=== PATIENT | female | born 1965 | race Caucasian/White ===

== ENCOUNTER 2021-10-24 02:18 | Emergency (ER) | payer OTHER, SELFPAY ==
[2021-10-24 02:24] VITALS: BP 119/74; PULSE 77; RESP 16; TEMP 36.7; O2SAT 97
--- NOTE | 2021-10-24 02:30 | DI.RAD_ITS ---
Exam(s) XR KNEE RT 3V AP,LAT,LOLY EXAM: XR KNEE RT 3V AP,LAT,LOLY CLINICAL HISTORY: fall 3 days ago pain. TECHNIQUE: 2D digital imaging was performed. COMPARISON: No exams were available for comparison FINDINGS: 3 views No evidence of acute fracture. There is small amount of increased joint fluid in the knee joint. Th e distal aspect of the long intramedullary femur mirella is noted which is secured by 2 screws at the lev el of the distal femoral metaphysis. There are moderate degenerative changes in all 3 compartments of the knee. No osseous lesions. Oste openia but no fractures. IMPRESSION: DATA REPOSITORY: RADIATION DOSE DELIVERED:
--- NOTE | 2021-10-24 02:47 | ED.GENADUL_ITS ---
Discharge Plan Disposition Patient Disposition: HOME Condition: Stable Discharge Details Chief Complaint: Orthopedic Clinical Impression: Strain of right knee Primary Care Provider: Unknown,Unknown ED Provider: Raymond Davis Home Meds and New Rx's Prescriptions: No Action No Known Home Meds Discharge Instructions Instructions: Knee Pain (ED) Additional Instructions: if pain continues in a week follow up with your primary care provider if you feel more ill, have fevers or the knee becomes red and swollen return to the emergency department Medical Decision Making 56 yo female who denies chronic medical problems comes in with cc of right knee pain. She states she was at work 3 days ago and slipped on wet floor and landed on her lateral right knee, denies hitting head or loc. Has had pain primarily when she is on her feet for awhile in the right knee since so came here. Denies fevers, chills, rashes. She arrives stable, speaking in full sentences and clearly. She localizes the pain to the lateral right knee. She has full rom and intact distal sensation and pulses. No visible or palpable deformity of the knee. Has tenderness over lateral joint line of the knee. No warmth or erythema. Suspect strain vs contusion but will xray to further evaluate for possible fracture, history and physical not consistent with etiology such as septic joint. xray on my read shows no acute findings, had a prior femur fracture and has hardware, I do not see an acute fracture. Will place in hinged knee brace, advised to f/u with pcp if pain continued. Differential Diagnosis Differential Diagnosis: contusion, sprain, strain Imaging Data Radiologic Study: Attestation: I personally reviewed and interpreted this imaging study as follows: Imaging: X-Ray My impression: no acute findings HPI General Mode of arrival: ambulatory . Date/Time Provider Initiated Documentation: 10/24/21 02:20 . Limitations to Documentation: no limitations . History of Present Illness 56 year old F presents to the emergency department with the chief complaint of right knee pain, described as moderate, Quality is described as aching, Patient started experiencing this day(s) (3) and it has been constant. No relieving factors improve symptom(s), No exacerbating factors reported . Patient notes no other symptoms.. Patient did receive the following treatments prior to arrival, NSAID (10pm last night) Related Data Home Medications Medication Instructions Recorded Confirmed Unknown [No Known Home Meds] 10/24/21 10/24/21 Allergies Allergy/AdvReac Type Severity Reaction Status Date / Time aspirin Allergy Unverified 10/24/21 02:27 codeine Allergy Unverified 10/24/21 02:28 Sulfa (Sulfonamide Allergy Unverified 10/24/21 02:28 Antibiotics) bees Allergy Uncoded 10/24/21 02:28 General Stated Complaint: Orthopedic SHO: 4 Review of Systems All systems reviewed & are unremarkable except as noted in HPI and below Constitutional Constitutional: Denies chills, Denies fever(s) and Denies weakness Cardiovascular Cardiovascular: Denies chest pain and Denies dyspnea Respiratory Respiratory: Denies cough and Denies dyspnea Gastrointestinal Gastrointestinal: Denies abdominal pain, Denies nausea and Denies vomiting Musculoskeletal Musculoskeletal: Denies joint swelling Neurologic Neurologic: Denies weakness PFSH All Active Problems (Updated 10/24/21 @ 03:08 by Raymond Davis MD) Strain of right knee (Acute) Social History Smoking/Tobacco Use Status: Never Smoking risk assessment performed?: Yes Substance use type: does not use Exam Const General: no acute distress Orientation: alert HENMT Head: normal to inspection Ears: external ears normal General nose exam: external nose normal Mouth: moist mucous membranes Eyes General: appearance normal, both eyes and all related structures Neck Neck: normal visual inspection Resp Effort & Inspection: normal respiratory effort and able to speak in complete sentences Cardio Rate: regular rate Skin General skin exam: no rashes or lesions noted Neuro General: patient alert and patient oriented x3 Extrem General: normal to inspection, full ROM and capillary refill normal Psych Mental Status: mental status grossly normal Course Vital Signs Vital signs: Vital Signs Temperature 36.7 C 10/24/21 02:24 Pulse 77 10/24/21 02:24 Respiratory Rate 16 10/24/21 02:24 Blood Pressure 119/74 10/24/21 02:24 Pulse Oximetry 97 10/24/21 02:24 Temperature 36.7 C 10/24/21 02:24 Temperature Source Temporal Artery Scan 10/24/21 02:24 Pulse 77 10/24/21 02:24 Respiratory Rate 16 10/24/21 02:24 Respiratory Effort 10/24/21 02:24 Blood Pressure 119/74 10/24/21 02:24 Blood Pressure Position Sitting 10/24/21 02:24 Pulse Oximetry 97 10/24/21 02:24 Oxygen Delivery Method Room Air 10/24/21 02:24 Oxygen Flow Rate 0 10/24/21 02:24 Pain Level 8 10/24/21 02:29
[2021-10-24] MEDS: Ibuprofen 600 MG TAB PO (02:50)
--- NOTE | 2021-10-24 04:26 | DI.VRAD_ITS ---
PROCEDURE INFORMATION: Exam: XR Right Knee Exam date and time: 10/24/2021 2:48 AM Age: 56 years old Clinical indication: Other: Fall 3 days ago pain TECHNIQUE: Imaging protocol: Radiologic exam of the Right knee. Views: 3 views. COMPARISON: No relevant prior studies available. FINDINGS: Bones/joints: Partially visualized femoral intramedullary mirella with distal fixation screws noted which appears intact. No fracture identified. The medial joint space is mildly narrowed. The lateral joint space is well maintained. Tibial spine spurring noted. Posterior distal femoral enthesophyte noted. Soft tissues: No significant knee joint effusion is present. IMPRESSION: No evidence of acute fracture or dislocation. Dictated and Authenticated by: Casey Lerner MD. Ordering:ATUL Andrade MD
== END 2021-10-24 03:14 | disposition home or self-care (01) ==
PROVIDERS: Emergency Provider Emergency Medicine
DX: S83.91XA Sprain of unspecified site of right knee, initial encounter (principal); W01.0XXA Fall on same level from slipping, tripping and stumbling without subsequent striking against object, initial encounter
CPT/HCPCS: 73562; 99283; 99282

== ENCOUNTER 2021-11-01 20:41 | Emergency (ER) | payer OTHER, SELFPAY ==
[2021-11-01 20:53] VITALS: BP 116/62; PULSE 82; RESP 16; TEMP 36.4; O2SAT 99
--- NOTE | 2021-11-01 21:07 | ED.GENADUL_ITS ---
Discharge Plan Disposition Patient Disposition: HOME Condition: Good Discharge Details Clinical Impression: Epicondylitis, lateral Primary Care Provider: Unknown,Unknown ED Provider: Edwardo Elliott Home Meds and New Rx's Prescriptions: New diclofenac sodium [Voltaren Arthritis Pain] 1 % gel 2 g topical QID Qty: 100 0RF Rx Instructions: apply to single elbow, wrist or hand; for hand includes palm/fingers/back of hand prednisone 50 mg tablet 50 mg PO DAILY Qty: 5 0RF Discharge Instructions Instructions: Tennis Elbow (ED) Additional Instructions: At this time your symptoms are consistent with tennis elbow. This is causing compression of the nerves that go down towards your wrist. Please use the tennis elbow brace as directed. Please apply the Voltaren gel to your elbow every 4-6 hours. Please take 500 mg of Tylenol every 6 hours. Please ice your elbow frequently throughout the day. If you do not have improvement of your symptoms after 2 to 3 days of this therapy then please take the steroid as directed. Make sure to take Tums or Maalox to help prevent any GI irritation while on the steroid. If you notice any worsening of your symptoms, or any new symptoms such as vomiting, diarrhea, fever, chills, shortness of breath, chest pain, numbness, weakness, or fainting , please return immediately to the emergency department for reevaluation. Please follow up with your primary care provider as soon as possible for reassessment and reevaluation. As always, it was a pleasure participating in your medical care today. Medical Decision Making This is a pleasant 56-year-old female with a past medical history of to develop, who presents today for evaluation of left elbow pain in her left dominant arm. Patient states that for the past week she has had mild tenderness over the left lateral elbow, however yesterday she went and helped someone move a tremendous amount of boxes, after which she had significant worsening of the pain. It caused associated numbness and tingling traveling down the forearm into the second third fourth and fifth digits. Pain is made worse with movement and palpation of the lateral elbow. She denies any trauma whatsoever. She denies any fever or chills. No other complaints at this time. No other modifying factors. She has taken ibuprofen but this has not improved her symptoms. Physical exam demonstrates lateral epicondyle she is tingling in the fingers is slightly atypical, and appears more consistent with an ulnar neuropathy however sensation is still present. Perhaps there is some crossover for the patient. There is no medial epicondyle tenderness whatsoever. Will recommend topical NSAIDs, tennis elbow splint, and Tylenol. The patient does not have improvement of her symptoms over the next 2 to 3 days with this therapy then she may require steroids as well. No indication for imaging at this time as patient has not had any trauma, and symptoms are clinically consistent currently with epicondylitis. We will hold off on imaging for the time being. Patient agrees to this plan. Patient will be discharged home. Discussed red flags which to return. I have extensively reviewed the treatment plan and discharge instructions with the patient. I have addressed all patient concerns at this time. The patient was made aware of what symptoms to monitor for that would warrant a return to the emergency department. Discussed the plan with the patient, they demonstrate verbal understanding and agreement with our assessment and plan at this time. The documentation in this chart was dictated using [employer] dictation software. Please excuse any dictation errors. HPI General Date/Time Provider Initiated Documentation: 11/01/21 20:41 . HPI Narrative: This is a pleasant 56-year-old female with a past medical history of to develop, who presents today for evaluation of left elbow pain in her left dominant arm. Patient states that for the past week she has had mild tenderness over the left lateral elbow, however yesterday she went and helped someone move a tremendous amount of boxes, after which she had significant worsening of the pain. It caused associated numbness and tingling traveling down the forearm into the second third fourth and fifth digits. Pain is made worse with movement and palpation of the lateral elbow. She denies any trauma whatsoever. She denies any fever or chills. No other complaints at this time. No other modifying factors. She has taken ibuprofen but this has not improved her symptoms. Related Data Home Medications Medication Instructions Recorded Confirmed diclofenac sodium 1 % topical gel 2 g topical QID #100 grams 11/01/21 (Voltaren Arthritis Pain) prednisone 50 mg tablet 50 mg PO DAILY #5 tabs 11/01/21 Previous Rx's Medication Instructions Recorded diclofenac sodium 1 % topical gel 2 g topical QID #100 grams 11/01/21 (Voltaren Arthritis Pain) prednisone 50 mg tablet 50 mg PO DAILY #5 tabs 11/01/21 Allergies Allergy/AdvReac Type Severity Reaction Status Date / Time aspirin Allergy Unverified 11/01/21 20:57 codeine Allergy Unverified 11/01/21 20:57 Sulfa (Sulfonamide Allergy Unverified 11/01/21 20:57 Antibiotics) bees Allergy Uncoded 11/01/21 20:57 General Stated Complaint: Orthopedic SHO: 4 Review of Systems All systems reviewed & are unremarkable except as noted in HPI and below PFSH All Active Problems Strain of right knee (Acute) Epicondylitis, lateral (Acute) Social History Smoking/Tobacco Use Status: Never Smoking risk assessment performed?: Yes Substance use type: does not use Exam Narrative Exam Narrative: 1.Const: Well-nourished, Well-developed, appearing stated age 2.Eyes: PERRL, no conjunctival injection, and symmetrical lids. 3.ENT: Atraumatic external nose and ears. Moist MM. Neck: Symmetric, trachea midline, No thyromegaly. 4.CVS: +S1/S2, No murmurs or gallops. Peripheral pulses 2+ and equal in all extremities. Brisk capillary refill in all extremities. 5.RESP: Unlabored respiratory effort. Clear to auscultation bilaterally. No wheezes rales or rhonchi 6.GI: Soft, Nontender/Nondistended, No hepatosplenomegaly. No guarding or rebound. 7.MSK: Left elbow demonstrates minimal swelling and mild tenderness over the lateral epicondyle, pain is made worse with supination mainly, and minimally worse with pronation. Pain is present with flexion and some extension. Subjective tingling present over the third fourth and fifth fingers. Sensation present still though. No tenderness over the carpal tunnel. Negative Alex test. On direct pressure to the forearm isolating the lateral flexors the patient has diminished pain in the lateral epicondyle. Left hand demonstrates symmetrically palpable radial and ulnar pulses. Capillary refill less than 2 seconds to all digits. Intact motor function of the radial, median and ulnar nerves demonstrated by strength of extension of the isolated distal joint of the index finger, hand document review specialist, and spreading of the 2nd through 5th digits. Intact recurrent median nerve as demonstrated by ability to move thumb fully through opposition, abduction and flexion. No snuffbox tenderness. 8.Skin: Warm, Dry. No rashes or lesions. 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 Sensation grossly intact, no focal neurologic deficits. 10.Psych: (AAO) x3. Appropriate mood and affect Course Vital Signs Vital signs: Vital Signs Temperature 36.4 C L 11/01/21 20:53 Pulse 82 11/01/21 20:53 Respiratory Rate 16 11/01/21 20:53 Blood Pressure 116/62 11/01/21 20:53 Pulse Oximetry 99 11/01/21 20:53 Temperature 36.4 C L 11/01/21 20:53 Temperature Source Tympanic 11/01/21 20:53 Pulse 82 11/01/21 20:53 Respiratory Rate 16 11/01/21 20:53 Respiratory Effort 11/01/21 20:53 Blood Pressure 116/62 11/01/21 20:53 Blood Pressure Position Sitting 11/01/21 20:53 Pulse Oximetry 99 11/01/21 20:53 Oxygen Delivery Method Room Air 11/01/21 20:53 Oxygen Flow Rate 0 11/01/21 20:53 Pain Level 10 11/01/21 20:53
[2021-11-01] MEDS: HYDROcodone 5/Acetaminophen 325 TAB PO (21:30)
== END 2021-11-01 21:40 | disposition home or self-care (01) ==
PROVIDERS: Emergency Provider Student in an Organized Health Care Education/Training Program
DX: M77.12 Lateral epicondylitis, left elbow (principal)
CPT/HCPCS: 99283; 99284

== ENCOUNTER 2022-03-19 17:50 | Emergency (ER) | payer OTHER, SELFPAY ==
[2022-03-19 17:53] VITALS: BP 111/66; PULSE 95; RESP 18; TEMP 37; O2SAT 97
--- NOTE | 2022-03-19 18:18 | W.ED.GENAD ---
Discharge Plan Disposition Patient Disposition: Home Condition: Stable Discharge Details Clinical Impression: Otitis media Primary Care Provider: None,None ED Provider: Manuel Partida Home Meds and New Rx's Prescriptions: New amoxicillin 875 mg tablet 875 mg PO BID Qty: 20 0RF Discharge Instructions Instructions: Ear Infection (ED) Additional Instructions: Amoxicillin as directed. [id number] medications as directed for symptomatic control. Please watch for new or worsening symptoms and return to the ER for any concerns. Lastly, please contact your primary care provider on Tuesday to discuss your ER visit and potential need for outpatient reevaluation. Medical Decision Making 56-year-old female, is not a smoker, denies significant past medical history reports right ear pain over the past 24 hours worsening with associated discharge. Clinically she appears well, nontoxic. Examination reveals a erythematous and bulging right TM with no effusion or perforation. We will provide first dose of amoxicillin now. Standard discharge and return precautions were provided. Patient understands, is agreeable to this plan, and has no additional questions or concerns upon discharge. This documentation was generated using [employer] system, please disregard any oddities of phrase or misspellings. Medical Records Medical records reviewed: Yes I reviewed the patient's medical records. HPI General Mode of arrival: ambulatory. Date/Time Provider Initiated Documentation: 03/19/22 17:57. Limitations to Documentation: no limitations. Information obtained by: patient. History of Present Illness 56 year old F presents to the emergency department with the chief complaint of R ear pain, described as moderate, with intensity rated at 5. Quality is described as aching, and is localized to the head and right. Patient reports no radiation. Patient started experiencing this day(s) (1) and it has been constant. No relieving factors improve symptom(s), No exacerbating factors reported . Patient notes no other symptoms.. Patient did receive the following treatments prior to arrival, none Related Data Home Medications Medication Instructions Recorded Confirmed amoxicillin 875 mg tablet 875 mg PO BID #20 tabs 03/19/22 Previous Rx's Medication Instructions Recorded amoxicillin 875 mg tablet 875 mg PO BID #20 tabs 03/19/22 Allergies Allergy/AdvReac Type Severity Reaction Status Date / Time aspirin Allergy Unverified 03/19/22 17:58 codeine Allergy Unverified 03/19/22 17:58 Sulfa (Sulfonamide Allergy Unverified 03/19/22 17:58 Antibiotics) bees Allergy Uncoded 03/19/22 17:58 General Stated Complaint: EarProblem SHO: 4 Review of Systems Constitutional Constitutional: Denies fever(s) and Denies headache(s) ENT Ears, Nose, Mouth, and Throat: Reports otalgia, Denies headache(s), Denies neck pain and Denies sore throat Cardiovascular Cardiovascular: Denies chest pain and Denies dyspnea Respiratory Respiratory: Denies cough and Denies dyspnea Musculoskeletal Musculoskeletal: Denies neck pain Integumentary/Breasts Skin/Breast: Denies rash Neurologic Neurologic: Denies headache(s) PFSH All Active Problems (Updated 03/19/22 @ 18:24 by JOSEFINA Holguin) Otitis media (Acute) Social History Smoking/Tobacco Use Status: Never Smoking risk assessment performed?: Yes Drug use: Never Substance use type: does not use Do you feel safe at home: Yes Do you feel safe in your relationship?: Yes Exam Const General: cooperative, healthy appearing, comfortable and no acute distress Orientation: alert and awake HENMT Head: normal to inspection, normocephalic and atraumatic Ears: TM normal on the left, EAC's normal and TM abnormal bulging on the left and erythematous on the left General nose exam: external nose normal Face and sinus: normal facial exam Mouth: moist mucous membranes Throat: posterior oropharynx normal Eyes General: appearance normal, both eyes and all related structures Conjunctivae: conjunctivae normal Neck Neck: normal visual inspection, full ROM, no lymphadenopathy, no meningeal signs, trachea midline, supple and nontender Resp Effort & Inspection: normal respiratory effort and able to speak in complete sentences Auscultation: clear to auscultation bilaterally Cardio Rate: regular rate Rhythm: regular rhythm Skin General skin exam: no rashes or lesions noted Neuro General: patient alert, patient awake, moves all extremities and no focal motor deficits Sensory Exam: no sensory deficits noted Psych Appearance: grossly normal Mental Status: mental status grossly normal Course Vital Signs Vital signs: Vital Signs Temperature 37.0 C 03/19/22 17:53 Pulse 95 H 03/19/22 17:53 Respiratory Rate 18 03/19/22 17:53 Blood Pressure 111/66 03/19/22 17:53 Pulse Oximetry 97 03/19/22 17:53 Temperature 37.0 C 03/19/22 17:53 Temperature Source Oral 03/19/22 17:53 Pulse 95 H 03/19/22 17:53 Respiratory Rate 18 03/19/22 17:53 Respiratory Effort Non-Labored 03/19/22 17:57 Blood Pressure 111/66 03/19/22 17:53 Blood Pressure Position Sitting 03/19/22 17:53 Pulse Oximetry 97 03/19/22 17:53 Oxygen Delivery Method Room Air 03/19/22 17:53 Oxygen Flow Rate 0 03/19/22 17:53 Pain Level 8 03/19/22 17:53 PAWSS Have you Been Recently Intoxicated or Drunk Within the Last 30 days?: No Have you Ever Experienced Previous Episodes of Alcohol Withdrawal?: No Have you ever Experienced Withdrawal Seizures?: No Have you ever Experienced Delirium Tremens(DT)s?: No Have you ever undergone Alcohol Rehabilitation Treatment (i.e, inpt ot outpatient treatment programs)?: No Have you ever Experienced Blackouts?: No Have you ever Combined Alcohol with other Downers within the last 90 days?: No Have you ever Combined Alcohol with any other Substance of Abuse during the last 90 days?: No Positive Blood Alcohol level on Presentation? [PCS.BAL]: No Evidence of Increased Autonomic Activity (i.e. HR>120, tremor, sweating, agitation, nausea)?: No Result: 0
[2022-03-19] MEDS: Amoxicillin 875 MG TAB PO (18:23)
[2022-03-19] MEDS: Ibuprofen 800 MG TAB (18:30)
== END 2022-03-19 18:32 | disposition home or self-care (01) ==
PROVIDERS: Emergency Provider Physician Assistant
DX: H66.91 Otitis media, unspecified, right ear (principal)
CPT/HCPCS: 99283

== ENCOUNTER 2023-05-04 10:42 | Emergency (ER) | payer OTHER, SELFPAY ==
[2023-05-04 10:53] VITALS: BP 124/68; PULSE 100; RESP 18; TEMP 37.5; O2SAT 97
[2023-05-04 11:51] VITALS: BP 124/68; PULSE 100; RESP 18; TEMP 37.5; O2SAT 97
--- NOTE | 2023-05-04 14:25 | ED.GENADUL_ITS ---
Discharge Plan Disposition Patient Disposition: Home Condition: Stable Discharge Details Clinical Impression: Abscess, dental Primary Care Provider: None,None ED Provider: Shanel Roberson Home Meds and New Rx's Prescriptions: New tramadol 50 mg tablet 50 mg PO BID PRNQty: 4 0RF penicillin V potassium 500 mg tablet 500 mg PO Q6H 10 Days Qty: 40 0RF Continued amoxicillin 875 mg tablet 875 mg PO BID Qty: 20 0RF Discharge Instructions Instructions: Dental Abscess (ED) Additional Instructions: take the antibiotic as prescribed I given you several doses of tramadol, this medication is addictive and you should not drive for 8 hours after taking it Gargle with salt water, follow-up with your dentist at your scheduled appointment and return earlier should you have new or worsening complaints Stay away from hard foods, stick to soft foods only Return earlier with new or worsening complaints HPI General Date/Time Provider Initiated Documentation: 05/04/23 12:21 . HPI Narrative: This 57-year-old female presents with left-sided dental pain, she states that her tooth broke when she was eating approximately 3 days ago. She now has significant pain to the affected area. Denies any difficulty swallowing, has had intermittent chills. Denies chest pain or shortness of breath. Related Data Home Medications Medication Instructions Recorded Confirmed amoxicillin 875 mg tablet 875 mg PO BID #20 tabs 03/19/22 penicillin V potassium 500 mg 500 mg PO Q6H 10 days #40 tabs 05/04/23 tablet tramadol 50 mg tablet 50 mg PO BID PRN #4 tabs 05/04/23 Previous Rx's Medication Instructions Recorded amoxicillin 875 mg tablet 875 mg PO BID #20 tabs 03/19/22 penicillin V potassium 500 mg 500 mg PO Q6H 10 days #40 tabs 05/04/23 tablet tramadol 50 mg tablet 50 mg PO BID PRN #4 tabs 05/04/23 Allergies Allergy/AdvReac Type Severity Reaction Status Date / Time aspirin Allergy Swelling/Ed Unverified 05/04/23 10:56 talita codeine Allergy Swelling/Ed Unverified 05/04/23 10:56 talita Sulfa (Sulfonamide Allergy Swelling/Ed Unverified 05/04/23 10:56 Antibiotics) talita bees Allergy Anaphylaxis Uncoded 05/04/23 10:56 General Stated Complaint: DentalOral SHO: 4 Course Vital Signs Vital signs: Vital Signs Temperature 37.5 C 05/04/23 10:53 Pulse 100 H 05/04/23 10:53 Respiratory Rate 18 05/04/23 10:53 Blood Pressure 124/68 05/04/23 10:53 Pulse Oximetry 97 05/04/23 10:53 Temperature 37.5 C 05/04/23 11:51 Temperature Source Tympanic 05/04/23 11:51 Pulse 100 H 05/04/23 11:51 Respiratory Rate 18 05/04/23 11:51 Respiratory Effort Normal, Non-Labored 05/04/23 10:55 Blood Pressure 124/68 05/04/23 11:51 Blood Pressure Position Sitting 05/04/23 11:51 Pulse Oximetry 97 05/04/23 11:51 Oxygen Delivery Method Room Air 05/04/23 11:51 Oxygen Flow Rate 0 05/04/23 11:51 Pain Level 8 05/04/23 11:51 Medical Decision Making 57-year-old female presenting with left-sided dental pain, #23, fractured tooth noted, no evidence of drainable abscess, no significant deep space infection, slight maxillary facial swelling noted facial swelling noted Will initiate penicillin, offered nerve block for pain, patient declined Given 4 tablets of tramadol, risk of addiction reviewed Given penicillin VK for home No clinical signs or symptoms consistent with Segundo's angina, uvula midline, oropharynx patent, no trismus, fracture noted to number 22-year-old Quality:SDOH Health Related Social Needs: No Data to Display PFSH All Active Problems (Updated 05/04/23 @ 12:35 by JOSEFINA Matthews) Abscess, dental (Acute) Social History Smoking/Tobacco Use Status: Never Smoking risk assessment performed?: Yes Drug use: Never Substance use type: does not use Do you feel safe at home: Yes Do you feel safe in your relationship?: Yes
== END 2023-05-04 13:16 | disposition home or self-care (01) ==
PROVIDERS: Emergency Provider Physician Assistant
DX: S02.5XXA Fracture of tooth (traumatic), initial encounter for closed fracture (principal); K04.7 Periapical abscess without sinus; X58.XXXA Exposure to other specified factors, initial encounter
CPT/HCPCS: 99283